=== PATIENT | female | born 1990 | race Caucasian/White ===

== ENCOUNTER 2018-01-10 15:56 | Emergency (ER) | payer OTHER ==
[2018-01-10 16:25] VITALS: BP 145/78
--- NOTE | 2018-01-10 17:16 | UC ---
Lower Extremity/Ankle HPI - HPI Summary HPI Summary: pleasant 28 yo female c/o Left lat ankle pain, swelling s/p falling onto step during descent, rolling left ankle. C/o progressive pain / swelling. Has been taking ibuprofen approx eveyr 6 hours (denies gi sx, drinking fluids ok). Elevatiing and has wrapped with olayinka. During the fall, her R knee bent hard, but denies pain. 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 Has been limping, does not have crutches at home. No known previous hx ankle injury. Denies risk . - History of Current Complaint Chief Complaint: UCLowerExtremity Stated Complaint: ANKLE INJURY Time Seen by Provider: 01/10/18 17:14 Hx Obtained From: Patient Hx Last Menstrual Period: [id number] Pain Intensity: 8 - Allergies/Home Medications Allergies/Adverse Reactions: Allergies Allergy/AdvReac Type Severity Reaction Status Date / Time No Known Allergies Allergy Verified 01/10/18 16:26 Home Medications: Home Medications Ibuprofen TAB* [Motrin TAB* 600 MG] 600 mg PO Q6H PRN 01/10/18 [History Confirmed 01/10/18] PMH/Surg Hx/FS Hx/Imm Hx Previously Healthy: Yes - Surgical History Surgical History: Yes Surgery Procedure, Year, and Place: [facility] - Family History Known Family History: Positive: None - Social History Alcohol Use: Rare Substance Use Type: None Smoking Status (MU): Light Every Day Tobacco Smoker Amount Used/How Often: 1/2 PACK A DAY Have You Smoked in the Last Year: Yes Review of Systems Constitutional: Negative Skin: Negative Eyes: Negative ENT: Negative Respiratory: Negative Cardiovascular: Negative Gastrointestinal: Negative Genitourinary: Negative Motor: Other - see hpi Neurovascular: Negative Musculoskeletal: Arthralgia Neurological: Negative Psychological: Negative Is Patient Immunocompromised?: No All Other Systems Reviewed And Are Negative: Yes Physical Exam Triage Information Reviewed: Yes Appearance: Well-Nourished - sitting up, conversing easily and appropriately. NAD Vital Signs: Initial Vital Signs Temp 98.0 F 01/10/18 16:20 Pulse 89 01/10/18 16:20 Resp 16 01/10/18 16:20 BP 145/78 01/10/18 16:20 Pulse Ox 98 01/10/18 16:20 Vital Signs Reviewed: Yes Eye Exam: Normal - grossly normal. ENT Exam: Normal - grossly normal Neck exam: Normal - no c/o pain, appears to move in all directions Neck: Positive: Supple Respiratory Exam: Normal - RR normal. No tachypnea, no dyspnea. Cardiovascular Exam: Normal - HR normal, nondiaphoretic. Distal cap refill is good. DP / PT palpable. Abdominal Exam: Normal Abdomen Description: Positive: Nontender Musculoskeletal Exam: Other - Left foot mild edema. CR good. Warm to touch. Minimal discoloration. Tender L mal region, dianne talofib, ant ank, some post fib tenderness. Prox 4/5th metatarsal tenderness. No crepitus. Neurological Exam: Normal - grossly nonfocal Psychological Exam: Normal - conversing easily and appropriately Skin Exam: Normal - see LLE exam above Lower Extremity Course/Dx - Course Course Of Treatment: Xrays reviewed. Reviewed coa/ tx plan, including importance of pressure offloading, elevation. Questions as posed answered to the best of my ability. - Differential Dx/Diagnosis Provider Diagnoses: Acute Left ankle sprain Discharge - Sign-Out/Discharge Documenting (check all that apply): Patient Departure All imaging exams completed and their final reports reviewed: Yes - Discharge Plan Condition: Stable Disposition: HOME Patient Education Materials: Ankle Sprain (DC), Ibuprofen (By mouth) Referrals: No Primary Care Phys,NOPCP [Primary Care Provider] - [facility] [Outside] Abel Parsons MD [Medical Doctor] - Additional Instructions: Follow up orthopedics 1-2 weeks. Follow up primary care physician, routine. Seek medical attention for worse or new problems. - Billing Disposition and Condition Condition: STABLE Disposition: Home
--- NOTE | 2018-01-10 17:52 | RAD ---
Indication: Left ankle injury. 3 views of left ankle demonstrates ankle mortise to be intact. No fracture is identified. IMPRESSION: No fracture of the left ankle is noted. Soft tissue swelling is noted.
--- NOTE | 2018-01-10 17:53 | RAD ---
Indication: Dorsal foot pain. 3 views of the left foot demonstrates no fracture. No other bone or joint abnormality is noted. IMPRESSION: No fracture of the left foot is noted.
== END 2018-01-10 18:22 | disposition home or self-care (01) ==
LOC: UCEAST 15:56
DX: S93.402A Sprain of unspecified ligament of left ankle, initial encounter (principal); W10.9XXA Fall (on) (from) unspecified stairs and steps, initial encounter; Y93.89 Activity, other specified; Y92.9 Unspecified place or not applicable; F17.200 Nicotine dependence, unspecified, uncomplicated
CPT/HCPCS: 99213; G0463